=== PATIENT | male | born 1960 | race Two or more races ===

== ENCOUNTER 2018-05-17 11:40 | Outpatient (CLI) | payer OTHER | END 2018-05-17 12:01 | disposition home or self-care (01) | LOC: RAD 501 11:40 | DX: M25.552 Pain in left hip (principal); M79.652 Pain in left thigh; M54.5 Low back pain ==

== ENCOUNTER 2018-07-04 06:42 | Outpatient (CLI) | payer OTHER ==
[2018-07-04] MEDS ORDERED: ATACAND HCT 321 EAC1 PO (10:07)
[2018-07-04] MEDS ORDERED: PRILOSEC10 MG (10:08)
== END 2018-07-04 12:07 | disposition home or self-care (01) ==
LOC: LAB 06:42
DX: I49.8 Other specified cardiac arrhythmias (principal); Z76.89 Persons encountering health services in other specified circumstances; D64.89 Other specified anemias; E88.89 Other specified metabolic disorders; D68.8 Other specified coagulation defects; N39.0 Urinary tract infection, site not specified; Z22.322 Carrier or suspected carrier of Methicillin resistant Staphylococcus aureus

== ENCOUNTER 2018-07-15 05:59 | Day surgery (SDC) | payer OTHER ==
[~2018-07-15 05:59] MED LIST: ATACAND HCT 321 EAC1 PO; PRILOSEC10 MG
== END 2018-07-15 15:30 | disposition home or self-care (01) ==
LOC: CIR.AMB 05:59
DX: M70.62 Trochanteric bursitis, left hip (principal)

== ENCOUNTER 2018-07-29 06:39 | Outpatient (CLI) | payer OTHER | END 2018-07-29 15:07 | disposition home or self-care (01) | LOC: LAB 06:39 | DX: D64.89 Other specified anemias (principal); M06.4 Inflammatory polyarthropathy; E55.9 Vitamin D deficiency, unspecified; M85.9 Disorder of bone density and structure, unspecified; E21.3 Hyperparathyroidism, unspecified; E88.89 Other specified metabolic disorders; M81.8 Other osteoporosis without current pathological fracture; E56.1 Deficiency of vitamin K ==

== ENCOUNTER 2018-07-29 08:36 | Outpatient (CLI) | payer OTHER | END 2018-07-29 09:44 | disposition home or self-care (01) | LOC: NUCLEAR 08:36 | DX: I87.2 Venous insufficiency (chronic) (peripheral) (principal); M81.0 Age-related osteoporosis without current pathological fracture ==